=== PATIENT | female | born 2000 | race Caucasian/White ===

== ENCOUNTER 2019-08-05 09:09 | Observation (INO) | payer MEDICAID ==
[~2019-08-05] VITALS: Ht 157.5 cm; Wt 68.0 kg
== END 2019-08-05 12:55 | disposition home or self-care (01) ==
LOC: 8 EST LDRP 09:09
PROVIDERS: ADMIT Specialist; ATTEND Specialist
DX: O36.8130 Decreased fetal movements, third trimester, not applicable or unspecified (principal); Z3A.28 28 weeks gestation of pregnancy
CPT/HCPCS: 36415; 76805; 82947; 82950; 99281; G0378